=== PATIENT | female | born 1975 | race Caucasian/White ===

== ENCOUNTER → 2019-03-05 | Outpatient (REF) | LOC: M LAB LCGH 14:24 | PROVIDERS: ATTEND Surgery | DX: K81.0 Acute cholecystitis (principal) ==

== ENCOUNTER → 2021-10-25 | Outpatient (REF) | payer BC | LOC: M SFHCDERM 17:27 | PROVIDERS: ATTEND Physician Assistant | DX: D49.2 Neoplasm of unspecified behavior of bone, soft tissue, and skin (principal) ==